=== PATIENT | male | born 1955 | race African-American/Black ===

== ENCOUNTER 2018-04-10 14:18 | Emergency (ER) | payer MEDICAID ==
[~2018-04-10] VITALS: Ht 180.3 cm; Wt 105.7 kg
[2018-04-10] MEDS ORDERED: TYLENOL EXTRA500 MG ORAL (14:56)
[2018-04-10] MEDS ORDERED: ROBAXIN500 MG PO (14:56)
--- NOTE | 2018-04-10 14:56 | Emergency Room Report ---
History of Present Illness General Chief Complaint: Neck Pain Source: Patient Present Illness HPI 62-year-old male patient presents ER complaining of neck stiffness with past 4 days. Reports no recent injury or trauma. Denies fever. Reports history of similar symptoms in the past. Reports in the past is normal resolved however has not resolved this time. Reports taking ibuprofen 800 mg relief of symptoms. Reports when he goes to pick something up and he feels his "muscles tense" and it feels like a muscle spasm. Denies other acute problems. denies chest pain, vomiting, shortness of breath, other acute symptoms. Allergies: Coded Allergies: No Known Allergies (Unverified , 04/10/18) Patient History Past Medical History: see triage record Reviewed Nursing Documentation: PMH: Agreed; PSxH: Agreed Nursing Documentation-PMH Past Medical History: No History, Except For Hx Hypertension: Yes Hx Diabetes: Yes Review of Systems All Other Systems: negative except mentioned in HPI Physical Exam Vital Signs Date Time Temp Pulse Resp B/P (MAP) Pulse Ox O2 Delivery O2 Flow Rate FiO2 04/10/18 14:28 98.6 63 20 159/87 94 Room Air 98.6 Sp02 EP Interpretation: reviewed, normal General Appearance: well appearing, no apparent distress, alert, GCS 15, non- toxic Head: normocephalic, atraumatic Eyes: bilateral eye normal inspection, bilateral eye PERRL ENT: hearing grossly normal, normal pharynx, no angioedema, normal voice, uvula midline, moist mucus membranes Neck: full range of motion, no bony tend - no bony depression or spinous process tenderness Respiratory: lungs clear, normal breath sounds, no rhonchi, no respiratory distress, no accessory muscle use, no wheezing, speaking full sentences Cardiovascular #1: regular rate, rhythm, no edema Musculoskeletal: back normal, digits/nails normal, gait/station normal, normal range of motion, non-tender Neurologic: alert, oriented x3, responsive, motor strength/tone normal, sensory intact, other - negative Brudzinski Psychiatric: mood/affect normal Skin: no rash Medical Decision Making PA Attestation Dr. Bryant is my supervising Physician whom patient management has been discussed with. Diagnostic Impression: Primary Impression: Neck muscle spasm ER Course Pt. presents to the ED c/o neck stiffness. Ddx considered but are not limited to fracture, sprain, strain, contusion, dislocation. No erythema, no warmth to touch, no fever, nontoxic appearing, low suspicion for septic joint. negative Brudzinski, patient afebrile, nontoxic appearing, low suspicion for meningitis at this time. Vital signs: are WNL, pt. is afebrile Ordered muscle relaxant and medication. ER COURSE Provided with pain medication and muscle relaxant. full range of motion, no spinous process tenderness or bony depression, no acute injury or accident, does not require imaging, likely muscle spasm causing pain, will provide patient with pain medication, muscle relaxant, lidocaine patch for relief of symptoms. Patient instructed on RICE method: rest, ice, compression, elevation. Patient instructed on rest, ice and heat. Contact information for orthopedic urgent care provided, follow-up with urgent care if unable to followup with primary care provider and get referral to strategy specialist. Followup with primary care provider. Discuss referral to ortho/pain management/ PT as needed. Discuss further imaging with MRI/CT as needed. DISCHARGE: -Rx provided for Tylenol for pain symptoms. -Rx provided for Methocarbamol. SE drowsiness, do not drink, drive, or operate heavy machinery while using. At this time pt. is stable for d/c to home. Patient is resting comfortably, in no acute distress, nontoxic appearing, talking without difficulty. Will provide printed patient care instructions, and any necessary prescriptions. Patient instructed to follow with primary care provider in 3 - 5 days and to request further follow-up as needed. Care plan and follow up instructions have been discussed with the patient prior to discharge. Take medications as directed. Patient questions asked and answered. Patient reports understanding and agreement to treatment plan. ER precautions given, patient instructed to return to ER immediately for any new or worsening of symptoms. - Please note that this Emergency Department Report was dictated using [employer] technology software, occasionally this can lead to erroneous entry secondary to interpretation by the dictation equipment. Last Vital Signs Date Time Temp Pulse Resp B/P (MAP) Pulse Ox O2 Delivery O2 Flow Rate FiO2 04/10/18 14:28 98.6 63 20 159/87 94 Room Air 98.6 Disposition: HOME, SELF-CARE Condition: Stable Scripts Acetaminophen* (TYLENOL EXTRA STRENGTH*) 500 Mg Tablet 500 MG ORAL Q8H PRN for Prn Headache/Temp > 101, #30 TAB 0 Refills Prov: Jeison Doyle 04/10/18 Methocarbamol* (ROBAXIN*) 500 Mg Tablet 500 MG PO TID, #21 TAB 0 Refills Prov: Jeison Doyle 04/10/18 Patient Instructions: Cervical Sprain, [id number], Muscle Cramps and Spasms, [id number] Additional Instructions: Patient instructed to follow up with primary care provider and discuss further referral to orthopedics/physical therapy/pain management as needed. If unable to followup with PCP, followup with orthopedic urgent care in 5-7 days , call to schedule appointment. Patient instructed on RICE method: rest, ice, compression, elevation. Take medications as directed. Patient questions asked and answered. ER precautions given, patient instructed to return to ER immediately for any new or worsening of symptoms. [facility] [address] [facility] [address] [facility], [id number] [email or web address] Jeison Doyle Apr 10, 2018 14:56
[2018-04-10] MEDS ORDERED: Ketorolac 30mg Inj IM ONE (15:00)
[2018-04-10] MEDS ORDERED: Methocarbamol 500mg tab ORAL ONE (15:00)
[2018-04-10 16:00] VITALS: BP 159/87
[2018-04-10 16:50] VITALS: BP 149/86
== END 2018-04-10 16:00 | disposition home or self-care (01) ==
LOC: EMR 14:56
DX: M62.838 Other muscle spasm (principal); M43.6 Torticollis; I10 Essential (primary) hypertension; E11.9 Type 2 diabetes mellitus without complications
CPT/HCPCS: 96372; 99283; J1885

== ENCOUNTER 2020-02-26 00:17 | Emergency (ER) | payer MEDICAID ==
[~2020-02-26] VITALS: Ht 177.8 cm; Wt 104.3 kg
[~2020-02-26 00:17] MED LIST: ROBAXIN500 MG PO; TYLENOL EXTRA500 MG ORAL
--- NOTE | 2020-02-26 00:32 | NUR ---
ED Nurse Note: Walk-in patient with complaints of bilateral edema x 2 months. Patient reports hitting leg and not feelingpain, has history of Dm and has pending appointment to investigate cause of bilateral edema with primary. Patient currently in restroom attempting to void to provide urine sample.
[2020-02-26 00:39] VITALS: BP 192/97
[2020-02-26 01:30] LABS: HEMOGLOBIN 11.7 G/DL (14.2-18.0); MEAN CORPUSCULAR VOLUME 114 FL (80-99); PLATELET COUNT 67 K/UL (150-450); RED BLOOD COUNT 3.17 M/UL (4.70-6.10); RED CELL DISTRIBUTION WIDTH 14.5 % (11.6-14.8); WHITE BLOOD COUNT 6.6 K/UL (4.8-10.8)
--- NOTE | 2020-02-26 01:36 | Emergency Room Report ---
History of Present Illness General Chief Complaint: Edema Source: Patient Present Illness HPI 64-year-old male presents to ED for leg swelling. Notes swelling to both legs for the last 2 months. Getting progressively worse. Denies pain. Denies fevers or chills. Denies chest pain. Denies shortness of breath. States that he used to take a "water pill" but it was discontinued by his PMD. Takes high blood pressure medications. States he is compliant with his medications otherwise. Denies fevers or chills. Denies congestion or cough. No other aggravating relieving factors. Denies any other associated symptoms Allergies: Coded Allergies: No Known Allergies (Unverified , 04/10/18) COVID-19 Screening Contact w/high risk pt: No Experienced COVID-19 symptoms?: No COVID-19 Testing performed BANANA LOADER: No Patient History Past Medical History: DM, HTN Social History: Denies: smoking, alcohol use, drug use Immunizations: UTD Reviewed Nursing Documentation: PMH: Agreed; PSxH: Agreed Nursing Documentation-PMH Hx Hypertension: Yes Hx Diabetes: Yes Review of Systems All Other Systems: negative except mentioned in HPI Physical Exam Vital Signs Date Time Temp Pulse Resp B/P (MAP) Pulse Ox O2 Delivery O2 Flow Rate FiO2 02/26/20 00:23 98.2 75 16 192/97 (128) 98 Room Air Sp02 EP Interpretation: reviewed, normal General Appearance: no apparent distress, alert, GCS 15, non-toxic Head: normocephalic, atraumatic Eyes: bilateral eye normal inspection, bilateral eye PERRL ENT: hearing grossly normal, normal pharynx, no angioedema, normal voice Neck: full range of motion, supple/symm/no masses Respiratory: chest non-tender, lungs clear, normal breath sounds, speaking full sentences Cardiovascular #1: regular rate, rhythm, no edema Cardiovascular #2: 2+ carotid (R), 2+ carotid (L), 2+ radial (R), 2+ radial (L) , 2+ dorsalis pedis (R), 2+ dorsalis pedis (L) Gastrointestinal: normal bowel sounds, non tender, soft, non-distended, no guarding, no rebound Rectal: deferred Genitourinary: normal inspection, no CVA tenderness Musculoskeletal: back normal, normal range of motion, gait/station normal, swelling - 2+ pitting edema b/l LEs Neurologic: alert, motor strength/tone normal, oriented x3, sensory intact, responsive, speech normal Psychiatric: judgement/insight normal, memory normal, mood/affect normal, no suicidal/homicidal ideation Reflexes: 3+ bicep (R), 3+ bicep (L), 3+ tricep (R), 3+ tricep (L), 3+ knee (R) , 3+ knee (L) Skin: no rash Lymphatic: no adenopathy Medical Decision Making Diagnostic Impression: Primary Impression: Peripheral edema Additional Impression: Elevated LFTs ER Course Hospital Course 64-year-old M presents ED complaining of b/l LE swelling Differential diagnoses include: CHF, pedal edema, cellulitis Clinical course Patient placed on stretcher. After initial history and physical I ordered labs , EKG, CXR labs reviewed- all electrolytes normal, troponins negative, no leukocytosis, hemoglobin/hematocrit stable, BNP WNL. LFTs elevated EKG - NSR, no acute ischemic changes interpreted by me CXR - cardiomegaly, no signs of fluid overloead I discussed findings with patient. No evidence of overt CHF or fluid overload. Given Lasix in ED. I discussed LFTs. States he does drink alcohol every day. Encouraged cessation of alcohol. Safe for discharge with close outpatient follow-up. States he has a PMD I. I feel this is a highly complex case requiring extensive working including EKG/Rhythm strip, Xray/CT/US, Blood/urine lab work, repeat exams while in ED, and administration of strong opiates/narcotics for pain control, admission to hospital or close patient follow up. Diagnosis - peripheral edema, elevated LFTs Stable and discharged to home with Rx lasix. Instructed to followup with PMD. Return to ED if symptoms recur or worsen Laboratory Tests Test 02/26/20 01:05 White Blood Count 6.6 K/UL (4.8-10.8) Red Blood Count 3.17 M/UL (4.70-6.10) L Hemoglobin 11.7 G/DL (14.2-18.0) L Hematocrit 36.0 % (42.0-52.0) L Mean Corpuscular Volume 114 FL (80-99) H Mean Corpuscular Hemoglobin 37.0 PG (27.0-31.0) H Mean Corpuscular Hemoglobin Concent 32.5 G/DL (32.0-36.0) Red Cell Distribution Width 14.5 % (11.6-14.8) Platelet Count 67 K/UL (150-450) L Mean Platelet Volume 11.7 FL (6.5-10.1) H Neutrophils (%) (Auto) % (45.0-75.0) Lymphocytes (%) (Auto) % (20.0-45.0) Monocytes (%) (Auto) % (1.0-10.0) Eosinophils (%) (Auto) % (0.0-3.0) Basophils (%) (Auto) % (0.0-2.0) Sodium Level 138 MMOL/L (136-145) Potassium Level 4.1 MMOL/L (3.5-5.1) Chloride Level 105 MMOL/L (98-107) Carbon Dioxide Level 25 MMOL/L (21-32) Anion Gap 8 mmol/L (5-15) Blood Urea Nitrogen 11 mg/dL (7-18) Creatinine 0.8 MG/DL (0.55-1.30) Estimat Glomerular Filtration Rate > 60 mL/min (>60) Glucose Level 135 MG/DL (74-106) H Calcium Level 8.2 MG/DL (8.5-10.1) L Total Bilirubin 1.5 MG/DL (0.2-1.0) H Direct Bilirubin 0.9 MG/DL (0.0-0.3) H Aspartate Amino Transf (AST/SGOT) 158 U/L (15-37) H Alanine Aminotransferase (ALT/SGPT) 120 U/L (12-78) H Alkaline Phosphatase 140 U/L (46-116) H Troponin I 0.007 ng/mL (0.000-0.056) Pro-B-Type Natriuretic Peptide 94 pg/mL (0-125) Total Protein 8.6 G/DL (6.4-8.2) H Albumin 2.5 G/DL (3.4-5.0) L Globulin 6.1 g/dL Albumin/Globulin Ratio 0.4 (1.0-2.7) L EKG Diagnostic Results Rate: normal Rhythm: NSR ST Segments: no acute changes ASA given to the pt in ED: No Rhythm Strip Diag. Results EP Interpretation: yes Rhythm: NSR, no PVC's, no ectopy Chest X-Ray Diagnostic Results Chest X-Ray Diagnostic Results : Chest X-Ray Ordered: Yes # of Views/Limited/Complete: 1 View Indication: Shortness of Breath EP Interpretation: Yes Interpretation: no consolidation, no effusion, no pneumothorax, no acute cardiopulmonary disease, other - cardiomegaly Impression: No acute disease Electronically Signed by: Electronically signed by Henrique Cosby MD Last Vital Signs Date Time Temp Pulse Resp B/P (MAP) Pulse Ox O2 Delivery O2 Flow Rate FiO2 02/26/20 00:39 98.2 75 16 192/97 98 Room Air Status: improved Disposition: HOME, SELF-CARE Condition: Stable Scripts Furosemide* (LASIX*) 40 Mg Tablet 40 MG ORAL DAILY, #30 TAB Prov: Henrique Cosby MD 02/26/20 Referrals: [facility],REFERR[facility] (PCP) Henrique Cosby MD Feb 26, 2020 01:36
[2020-02-26 01:40] LABS: ANION GAP 8 mmol/L (5-15); BLOOD UREA NITROGEN 11 mg/dL (7-18); CALCIUM 8.2 MG/DL (8.5-10.1); CARBON DIOXIDE 25 MMOL/L (21-32); CHLORIDE 105 MMOL/L (98-107); CREATININE 0.8 MG/DL (0.55-1.30); POTASSIUM 4.1 MMOL/L (3.5-5.1); SODIUM 138 MMOL/L (136-145)
[2020-02-26 01:51] LABS: ALANINE AMINOTRANSFERASE 120 U/L (12-78); ALBUMIN 2.5 G/DL (3.4-5.0); ALBUMIN/GLOBULIN RATIO 0.4 (1.0-2.7); ALKALINE PHOSPHATASE 140 U/L (46-116); ASPARTATE AMINO TRANSFERASE 158 U/L (15-37); BILIRUBIN,TOTAL 1.5 MG/DL (0.2-1.0)
[2020-02-26 01:55] LABS: BILIRUBIN,DIRECT 0.9 MG/DL (0.0-0.3)
[2020-02-26 02:50] VITALS: BP 176/87
[2020-02-26] MEDS ORDERED: FUROSEMIDE40 MG ORAL (02:50)
--- NOTE | 2020-02-26 02:50 | NUR ---
ED Nurse Note: Faye blood pressure elevated as nestor has a history of hypertension and did not take medications tonight. Mainor render diuretic medication and recheck BP prior to discharge.
[2020-02-26 03:20] VITALS: BP 166/80
--- NOTE | 2020-02-26 03:21 | NUR ---
ER DISCHARGE NOTE: Patient is cleared to be discharged per ERMD. Patient tolerated IV medication well and BP documented post lasix administration and is 10 points lower. Patient verbalized understanding of discharge instructions. IV removed without complication ID band removed. Patient departed with all belongings accompanied by nphew to take him to his home.
[2020-02-26 03:27] VITALS: BP 166/80
--- NOTE | 2020-02-26 17:42 | Diagnostic Imaging Report ---
Indication: Chest pain Technique: One view of the chest Comparison: none Findings: The heart is enlarged. The lungs and pleural spaces are clear. Impression: Cardiomegaly. No acute process
== END 2020-02-26 03:27 | disposition home or self-care (01) ==
LOC: EMR 00:48
DX: R60.0 Localized edema (principal); R94.5 Abnormal results of liver function studies; E11.9 Type 2 diabetes mellitus without complications; I10 Essential (primary) hypertension; I51.7 Cardiomegaly
CPT/HCPCS: 36415; 71045; 80053; 82248; 83880; 84484; 85025; 93005; 96374; J1940; Z7502; 99284